=== PATIENT | male | born 1970 | race Caucasian/White ===

== ENCOUNTER → 2021-06-29 09:50 | Outpatient (REF) | payer BC, SELFPAY ==
--- NOTE | 2021-06-29 10:00 | CA_ITS ---
Acquisition Time: 2021-06-29 10:20:22 Total Exercise Time: 00:10:30 Test Indications: CP Medications: SEE CHART Protocol: COLIN Max HR: 150 BPM 88% of Pred: 170 BPM Max BP: 158/074 mmHG Max Work Load: 12.5 METS Exercise stress test with exercise 10 min 30 sec of Colin protocol, without anginal symptoms, with sinus arrythmia, with normotensive response to exercise, with EKG changes meeting criteria for ischemia inferiolateral leads which improves quickly in recovery. Test reviewed with Dr Moore. Report called to Dr Arnold office with recommendation for a stress echocardiogram. Referred By: Gordon Oropeza Overread By: JOJO OWENS
== END ==
LOC: HO.CARD 09:50
PROVIDERS: PCP Internal Medicine Medical Oncology; Visit Provider Internal Medicine Medical Oncology
DX: R07.9 Chest pain, unspecified (principal)
CPT/HCPCS: 93017

== ENCOUNTER → 2021-08-10 10:55 | Outpatient (REF) | payer BC, SELFPAY ==
--- NOTE | 2021-08-10 11:00 | CA_ITS ---
Acquisition Time: 2021-08-10 11:23:02 Total Exercise Time: 00:11:15 Test Indications: abn ett, cp Medications: see chart Protocol: COLIN Max HR: 166 BPM 97% of Pred: 170 BPM Max BP: 138/080 mmHG Max Work Load: 13.4 METS Exercise stress est with exercise 11 min 15 sec of Colin protocol, with 2-3/10 lower sternal pressure at baseline which resolved with exercise, without arrythmia, with normotensive response to exercise, with artifact in later stages and peak exercse, without EKG changes of ischemia at 29 sec of recovery, with nonspecific ST abnormality noted in late recovery. Echo images obtained by tech at rest and immediately post peak exercise. Definity contrast used. Test reviewed with Dr Moore. Referred By: Gordon Oropeza Overread By: JOJO OWENS
== END ==
LOC: HO.CARD 10:55
PROVIDERS: PCP Internal Medicine Medical Oncology; Visit Provider Internal Medicine Medical Oncology
DX: I49.8 Other specified cardiac arrhythmias (principal)
CPT/HCPCS: 93350; Q9957

== ENCOUNTER 2022-02-12 08:48 | Day surgery (SDC) | payer BC, SELFPAY ==
[2022-02-05 14:25] VITALS: BMI 26.2
--- NOTE | 2022-02-11 12:11 | HO.ANESPROP2 ---
Documented by User: Samantha Deluca NP 02/11/22 12:11 HPI - Anesthesia Eval Consult details Narrative: 51yo M for Colonoscopy COUNTS INCLUDE 234 BEDS AT THE [facility] Past Medical History Medical History ADD (attention deficit disorder) Hx of gastroesophageal reflux (GERD) Hyperlipidemia Seasonal allergies Seasonal asthma Surgical History Surgical History History of nasal surgery S/P excision of lipoma Social History Social History Advance Directives: No Advance Directives Information Provided: Yes Meds Allergies Allergy/AdvReac Type Severity Reaction Status Date / Time almond Allergy Severe ANAPHYLAXIS Verified 02/12/22 09:11 cashew nut Allergy Severe ANAPHYLAXIS Verified 02/12/22 09:11 pistachio nut Allergy Severe ANAPHYLAXIS Verified 02/12/22 09:11 animal dander Allergy Unknown Verified 02/05/22 14:22 mite-Dermatophagoides Allergy Unknown Verified 02/05/22 14:22 farinae, marcello [dust mite - [place]] pollen extracts Allergy Unknown Verified 02/05/22 14:22 Home Medications Medication Instructions Recorded Confirmed Last Taken Type albuterol sulfate 90 mcg/actuation 2 puff inhalation Q4-6H PRN 02/05/22 02/05/22 Unknown History aerosol inhaler (ProAir HFA) Wheezing aspirin 81 mg tablet,delayed 81 mg PO DAILY 02/05/22 02/05/22 Unknown History release budesonide-formoterol HFA 160 1 puff inhalation BID 02/05/22 02/05/22 Unknown History mcg-4.5 mcg/actuation aerosol inhaler (Symbicort) cetirizine 10 mg tablet (Zyrtec) 10 mg PO DAILY 02/05/22 02/05/22 Unknown History dextroamphetamine-amphetamine ER 30 mg PO DAILY 02/05/22 02/05/22 Unknown History 30 mg 24hr capsule,extend release (Adderall XR) simvastatin 20 mg tablet 20 mg PO DAILY 02/05/22 02/05/22 Unknown History Exam Exam Date and Time: February 11, 2022 1211 Height,Weight and Vital Signs: Height 5 ft 7 in Weight 75.75 kg Assessment and Plan Assessment Anesthesia Assessment: Chart Reviewed Documented by User: Nayan Pearson MD 02/12/22 12:29 COUNTS INCLUDE 234 BEDS AT THE [facility] Past Medical History Medical History ADD (attention deficit disorder) Hx of gastroesophageal reflux (GERD) Hyperlipidemia Seasonal allergies Seasonal asthma Family History Family history of problems with anesthesia: No Surgical History Surgical History History of nasal surgery S/P excision of lipoma History of Problems with Anesthesia: No Social History Social History Advance Directives: No Advance Directives Information Provided: Yes Meds Allergies Allergy/AdvReac Type Severity Reaction Status Date / Time almond Allergy Severe ANAPHYLAXIS Verified 02/12/22 09:11 cashew nut Allergy Severe ANAPHYLAXIS Verified 02/12/22 09:11 pistachio nut Allergy Severe ANAPHYLAXIS Verified 02/12/22 09:11 animal dander Allergy Unknown Verified 02/05/22 14:22 mite-Dermatophagoides Allergy Unknown Verified 02/05/22 14:22 farinae, marcello [dust mite - [place]] pollen extracts Allergy Unknown Verified 02/05/22 14:22 Home Medications Medication Instructions Recorded Confirmed Last Taken Type albuterol sulfate 90 mcg/actuation 2 puff inhalation Q4-6H PRN 02/05/22 02/05/22 Unknown History aerosol inhaler (ProAir HFA) Wheezing aspirin 81 mg tablet,delayed 81 mg PO DAILY 02/05/22 02/05/22 Unknown History release budesonide-formoterol HFA 160 1 puff inhalation BID 02/05/22 02/05/22 Unknown History mcg-4.5 mcg/actuation aerosol inhaler (Symbicort) cetirizine 10 mg tablet (Zyrtec) 10 mg PO DAILY 02/05/22 02/05/22 Unknown History dextroamphetamine-amphetamine ER 30 mg PO DAILY 02/05/22 02/05/22 Unknown History 30 mg 24hr capsule,extend release (Adderall XR) simvastatin 20 mg tablet 20 mg PO DAILY 02/05/22 02/05/22 Unknown History Exam Airway Mallampati Class: II TM Dist: >3cm Neck ROM: Full Loose/Missing/Broken Teeth: Yes (Bridges ) Heart: S1,S2 Lungs: b/l breath sounds Assessment and Plan Assessment Anesthesia Assessment: Anesthesia Plan Discussed Final Anesthetic Review Family History of Problems with Anesthesia: No History of Problems with Anesthesia: No NPO: Yes ASA Class: II Final Preanesthetic Review: Meds/Allgs Chart Reviewed, Consent Obtained/Reviewed and Anes Risks/Benef Reviewed Patient Risk: Intermediate Procedure Risk: Intermediate Anesthetic Plan Anesthetic Plan: MAC: Disposition: Standard PACU
[2022-02-12] MEDS: Lactated Ringers 1,000 ML 100 ML IVCONT (09:44)
[2022-02-12 09:46] VITALS: BP 140/83; PULSE 63; RESP 18; TEMP 36.6; O2SAT 100
--- NOTE | 2022-02-12 10:56 | P.BOP_ITS ---
Brief Operative Note Date of Service: 02/12/22 Pre-op diagnosis: Screening Post-op diagnosis: other (Rectal polyp) Procedure: Colonoscopy to the cecum and TI with biopsy/removal of polyp Surgeon: Gordon Plummer Anesthesia: MAC Was an Investigator Narcotics used for this Procedure?: No Estimated blood loss (mL): 2.0 Pathology: other (A. Rectal polyp) Condition: stable Disposition: PACU
[2022-02-12 10:58] VITALS: BP 88/56; PULSE 63; RESP 17; TEMP 36.1; O2SAT 98
[2022-02-12 11:13] VITALS: BP 121/71; PULSE 62; RESP 16; O2SAT 98
[2022-02-12 11:26] VITALS: BP 124/76; PULSE 60; RESP 16; TEMP 36.3; O2SAT 100
--- NOTE | 2022-02-12 22:13 | OP_ITS ---
SURGEON: Gordon Plummer MD INDICATIONS: The patient presents for evaluation of colorectal cancer screening. Full consent obtained from him for this, including risks of bleeding and perforation. PREOPERATIVE DIAGNOSIS: Colorectal cancer screening. POSTOPERATIVE DIAGNOSIS: PROCEDURE PERFORMED: Colonoscopy to the cecum and terminal ileum with biopsy removal of polyp. ESTIMATED BLOOD LOSS: COMPLICATIONS: ANESTHESIA: Preop medication used, monitored anesthesia care. ASSISTANTS: SPECIMENS: POSTOPERATIVE DIAGNOSES: Small rectal polyp, diverticulosis, and internal hemorrhoids. DESCRIPTION OF PROCEDURE: The patient was placed in the left lateral decubitus position. The digital rectal exam revealed no abnormalities. The Olympus video pediatric colonoscope was entered into the rectum and advanced easily to the cecum. Once in the cecum, I did identify normal-appearing cecal pouch with appendiceal orifice and normal-appearing ileocecal valve. The terminal ileum was cannulated and appeared normal. The scope was withdrawn back in the colon. The entire cecum and ileocecal valve appeared normal. The scope was slowly withdrawn assessing all mucosal surfaces carefully. Preparation was excellent. There was a mild amount of sigmoid diverticulosis. There was no sign of any colitis, nor angiodysplasia. The only polyp I visualized was in the rectum. This was approximately 3 or 4 mm in diameter and was biopsied and completely removed with cold biopsy forceps. The scope was retroflexed visualizing internal hemorrhoids, but no other pathology. The scope was straightened and withdrawn the patient. He tolerated the procedure well and was returned to recovery area in stable condition. IMPRESSION: 1. Small rectal polyp, status post biopsy removal. 2. Diverticulosis. 3. Internal hemorrhoids. PLAN: The results of biopsies will be checked. If this is a tubular adenoma, I would recommend a followup colonoscopy in 5 years. If it is only hyperplastic, I would recommend a followup colonoscopy in 10 years. He will otherwise see me on a p.r.n. basis. MD POONAM Perez/ERROL / [id number]
== END 2022-02-12 12:46 | disposition home or self-care (01) ==
PROVIDERS: PCP Internal Medicine Medical Oncology; Visit Provider Internal Medicine
PROC: 0DJD8ZZ Inspection of Lower Intestinal Tract, Via Natural or Artificial Opening Endoscopic (ICD-10-PCS; CPT 45378; principal; 2022-02-12 10:30)
DX: Z12.11 Encounter for screening for malignant neoplasm of colon (principal); K62.1 Rectal polyp; K57.30 Diverticulosis of large intestine without perforation or abscess without bleeding; K64.8 Other hemorrhoids; J45.909 Unspecified asthma, uncomplicated; E78.5 Hyperlipidemia, unspecified; F98.8 Other specified behavioral and emotional disorders with onset usually occurring in childhood and adolescence; Z79.51 Long term (current) use of inhaled steroids; Z79.899 Other long term (current) drug therapy; Z79.82 Long term (current) use of aspirin; Z87.891 Personal history of nicotine dependence
CPT/HCPCS: 45380; 88305